=== PATIENT | male | born 1980 | race Caucasian/White ===

== ENCOUNTER 2016-10-29 20:11 | Emergency (ER) | payer BC, OTHER ==
[~2016-10-29] VITALS: Ht 180.3 cm; Wt 105.0 kg
[~2016-10-29 20:11] MED LIST: HYDR-3535 PO; METH750T2 PO; MOBI7.5T PO; NAPR500 PO; PRIN10TA PO
[2016-10-29 20:13] VITALS: BP 174/98; PULSE 73; RESP 18; TEMP 97.8; O2SAT 98
[2016-10-29] MEDS ORDERED: MOBI7.5T PO (20:46)
[2016-10-29] MEDS ORDERED: LISI10TA3 PO (20:46)
[2016-10-29] MEDS ORDERED: PERI0.126 SWISH-SPIT (20:59)
[2016-10-29] MEDS ORDERED: IBUP800T23 PO (20:59)
[2016-10-29] MEDS ORDERED: CLIN1CAP5 PO (20:59)
--- NOTE | 2016-10-29 20:59 | PD ---
HPI Chief Complaint: Oral / Dental Pain or Problem Time Seen by Provider: 20:51 Travel History International Travel<30 days: No Contact w/Intl Traveler<30days: No Traveled to known affect area: No History of Present Illness HPI Patient is a 35-year-old male presenting to the emergency department for evaluation of left lower third tooth pain. Patient states he's had chronic issues with that tooth however 2 days ago the tooth chipped off further. He reports the pain as a 6 out of 10 and believes he is developing an abscess. He reports that his gum is swollen around the tooth. He denies any fever, chills, headache, neck pain, dysphagia. PFSH Past Medical History Cardiac Catheterization: Yes (THINKS) Diminished Hearing: No GERD: Yes Hypertension: Yes Tetanus Vaccination: Unknown Influenza Vaccination: No Past Surgical History Other Surgery: Yes Social History Alcohol Use: No Tobacco Use: Yes Substance Use: No Allergies-Medications (Allergen,Severity, Reaction): Coded Allergies: No Known Allergies (Verified , 03/18/15) Reported Meds & Prescriptions Reported Meds & Active Scripts Active Reported Lisinopril 10 Mg Tab 10 Mg PO DAILY Mobic (Meloxicam) 7.5 Mg Tab Unknown Dose PO DAILY Review of Systems Except as stated in HPI: all other systems reviewed are Neg HENT: Positive: Dental Difficulties Physical Exam Narrative GENERAL: Well-nourished, well-developed patient. SKIN: Focused skin assessment warm/dry. HEAD: Normocephalic. MOUTH: Mucous membranes moist, no lesions, tongue appears normal. Lateral aspect of left lower gums adjacent to the third molar is mildly edematous and erythematous left lower third molar is broken off at the gumline. EYES: No scleral icterus. No injection or drainage. NECK: Supple, trachea midline. No JVD or lymphadenopathy. CARDIOVASCULAR: Regular rate and rhythm without murmurs, gallops, or rubs. RESPIRATORY: Breath sounds equal bilaterally. No accessory muscle use. GASTROINTESTINAL: Abdomen soft, non-tender, nondistended. MUSCULOSKELETAL: No cyanosis, or edema. BACK: Nontender without obvious deformity. No CVA tenderness. Data Data Last Documented VS Vital Signs Date Time Temp Pulse Resp B/P Pulse Ox O2 Delivery O2 Flow Rate FiO2 10/29/16 20:13 97.8 73 18 174/98 98 Room Air MDM Medical Decision Making Medical Screen Exam Complete: Yes Emergency Medical Condition: Yes Interpretation(s) Vital Signs Date Time Temp Pulse Resp B/P Pulse Ox O2 Delivery O2 Flow Rate FiO2 10/29/16 20:13 97.8 73 18 174/98 98 Room Air Differential Diagnosis Dental caries versus abscess versus dentalgia versus other Narrative Course Patient is a 35-year-old male presenting with acute on chronic dental pain in the left third molar. Patient's multiple dental caries throughout his mouth. There is a small area of edema to gumlines adjacent to the left lower third molar. Patient will be placed on antibiotics, he was given the list of local dental clinics. He was encouraged to follow-up with a dentist for further evaluation and treatment. He was encouraged to take ibuprofen as needed and as directed for pain. He was advised to return to emergency department for any new or worsening symptoms. Patient verbalized understanding of these instructions. Patient is stable for discharge. Diagnosis Primary Impression: Dental caries Additional Impression: Dental abscess Referrals: Dentist 3 days Patient Instructions: Dental Abscess (GEN), General Instructions Additional Instructions: Follow up with a dentist for further evaluation and management Complete full course of antibiotics as prescribed Take ibuprofen as needed as directed for pain Return to emergency department for any new or worsening symptoms Med/Other Pt SpecificInfo: Prescription(s) given Scripts Ibuprofen 800 Mg [id number] Mg PO Q6HR PRN (PAIN) #40 TAB Ref 0 Prov:Haley Carrero 10/29/16 Chlorhexidine Gluconate (Mouth) Liq (Peridex Liq)0.12% Soln15 Ml SWISH-SPIT BID 10 Days Ref 0 Prov:Haley Carrero 10/29/16 Clindamycin 150 Mg [id number] Mg PO Q8HR 10 Days Ref 0 Prov:Haley Carrero 10/29/16 Disposition: 01 DISCHARGE HOME Condition: Stable Haley Carrero Oct 29, 2016 20:59
== END 2016-10-29 21:20 | disposition home or self-care (01) ==
LOC: NEPK 20:11
DX: K02.9 Dental caries, unspecified (principal); K04.7 Periapical abscess without sinus; I10 Essential (primary) hypertension; Z72.0 Tobacco use
CPT/HCPCS: 99283

== ENCOUNTER 2017-05-29 03:32 | Emergency (ER) | payer OTHER ==
[~2017-05-29] VITALS: Ht 177.8 cm; Wt 110.0 kg
[~2017-05-29 03:32] MED LIST changes: +CLIN150C14 PO; -HYDR-3535 PO; +IBUP1TAB7 PO; +LISI10TA3 PO; -METH750T2 PO; -NAPR500 PO; +PERI0.126 SWISH-SPIT; -PRIN10TA PO
[2017-05-29 03:33] VITALS: BP 167/92; PULSE 82; RESP 16; TEMP 98.1; O2SAT 97
[2017-05-29] MEDS ORDERED: HYDR-3583 PO (03:38)
[2017-05-29] MEDS ORDERED: LISI10TA3 PO (03:38)
[2017-05-29] MEDS ORDERED: CYCL10TA PO (03:38)
[2017-05-29] MEDS ORDERED: ORPHENADRINE INJ 60 MG/2 ML AMP IV ONE (05:00)
[2017-05-29] MEDS ORDERED: SODIUM CHLOR 0.9% 1000 ML INJ 1,000 ML IV ONE (05:00)
[2017-05-29] MEDS ORDERED: KETOROLAC TROMETHAMINE 30 MG/ML (IVP) VIAL IV PUSH ONE (05:00)
[2017-05-29 05:19] LABS: AUTOMATED NEUTROPHIL # 6.4 TH/MM3 (1.8-7.7); BASOPHIL # 0.1 TH/MM3 (0-0.2); BASOPHIL % 0.8 % (0.0-2.0); EOSINOPHIL # 0.2 TH/MM3 (0-0.4); EOSINOPHIL % 2.3 % (0.0-4.0); HEMATOCRIT 43.6 % (39.0-51.0); HEMOGLOBIN 15.3 GM/DL (13.0-17.0); LYMPHOCYTE # 2.8 TH/MM3 (1.0-4.8); MEAN CELL VOLUME 88.4 FL (80.0-100.0); MEAN CORPUSCULAR HGB CONC 35.1 % (32.0-36.0); MEAN PLATELET VOLUME 9.1 FL (7.0-11.0); MONO % 8.7 % (0.0-8.0); MONOCYTE # 0.9 TH/MM3 (0-0.9); NEUT % 61.2 % (16.0-70.0); PLATELET COUNT 216 TH/MM3 (150-450); RED BLOOD COUNT 4.94 MIL/MM3 (4.50-5.90); RED CELL DISTRIBUTION WIDTH 12.9 % (11.6-17.2); WHITE BLOOD COUNT 10.5 TH/MM3 (4.0-11.0)
[2017-05-29 05:25] LABS: PROTHROMBIN TIME - PATIENT 9.8 SEC (9.8-11.6)
[2017-05-29 05:43] LABS: BICARBONATE 22.6 MEQ/L (21.0-32.0); C-REACTIVE PROTEIN 1.63 MG/DL (0.00-0.30); CALCIUM 8.8 MG/DL (8.5-10.1); CREATININE 0.9 MG/DL (0.60-1.30)
[2017-05-29] MEDS ORDERED: IOHEXOL 350 MG/ML 10 ML VIAL (for RAD DIAG) IVCONTRAST ONE (05:47)
--- NOTE | 2017-05-29 06:24 | RADRPT ---
EXAM DATE/TIME: 05/29/2017 05:37 [facility] COMPARISON: No previous studies available for comparison. INDICATIONS : Neck pain. IV CONTRAST: 80 cc Omnipaque 350 (iohexol) IV RADIATION DOSE: 16.05 CTDIvol (mGy) MEDICAL HISTORY : Hypertension. SURGICAL HISTORY : None. ENCOUNTER: Initial ACUITY: 1 day PAIN SCALE: 5/10 LOCATION: Bilateral neck TECHNIQUE: Volumetric scanning of the neck was performed. Using automated exposure control and adjustment of th e mA and/or kV according to patient size, radiation dose was kept as low as reasonably achievable to obtain optimal diagnostic quality images. DICOM format image data is available electronically for r eview and comparison. FINDINGS: NASOPHARYNX: The nasopharyngeal airway has a normal configuration. No mucosal thickening or mass is seen. OROPHARYNX: The intrinsic muscles of the tongue are symmetric. The tonsillar pillars are intact. The prevertebr al soft tissues are not thickened. The tonsils are prominent bilaterally without deeply infiltrating lesion. LARYNX: The supraglottic, glottic, and infraglottic structures are intact. PARAPHARYNGEAL: The parapharyngeal space is intact. SALIVARY GLANDS: The parotid and submandibular glands are intact. LYMPH NODES: No enlarged or necrotic-appearing nodes. THYROID: Homogeneous enhancement without evidence of nodule. BONES: Unremarkable. CONCLUSION: 1. Prominent tonsils otherwise unremarkable examination 2. Mildly enlarged group 2 lymph nodes bilaterally likely reactive. Gabe Young MD on May 29, 2017 at 6:19 Board Certified Radiologist. This report was verified electronically.
--- NOTE | 2017-05-29 06:27 | PD ---
HPI Chief Complaint: Back/ Neck Pain or Injury Time Seen by Provider: 03:59 Travel History International Travel<30 days: No Contact w/Intl Traveler<30days: No Traveled to known affect area: No History of Present Illness HPI 36-year-old white male presents emergency department with complaints of neck pain. He states that he had woken approximate 4:30 in the morning yesterday with pain. He states that the pain was mild and he felt some stiff in his neck. Throughout the day the pain has progressively worsened. He states that he has had a sore throat with this and has to clench his teeth because of the pain. Patient states the pain now has become moderate to severe. He states that he is unable to rotate his head to the left or the right. He can flex it forward some degree an extended but it is also limited. Patient denies any trauma. He has had a history of herniated disc in his neck but they have not been bothering her lately. Patient does make note that he has had a dental infection and he has been on clindamycin. He denies to glossal edema. No difficulty swallowing. He denies any focal numbness, tingling or weakness. PFSH Past Medical History Narrative Medical Hypertension, cardiac catheterization, cervical disc disease, lumbar disc disease, GERD Cardiac Catheterization: Yes (THINKS) Diminished Hearing: No Gastrointestinal Disorders: Yes GERD: Yes Hypertension: Yes Tetanus Vaccination: < 5 Years Past Surgical History Surgical History: No Previous Surgery Other Surgery: Yes Social History Alcohol Use: Yes Tobacco Use: Yes Substance Use: No Allergies-Medications (Allergen,Severity, Reaction): Coded Allergies: No Known Allergies (Verified Adverse Reaction, Unknown, 05/29/17) Reported Meds & Prescriptions Reported Meds & Active Scripts Active Reported Lisinopril 10 Mg Tab 10 Mg PO DAILY Flexeril (Cyclobenzaprine HCl) 10 Mg Tab 10 Mg PO TID Hydrocodone-Acetaminophen 10-325 mg Tab 1 Tab PO Q4H PRN Review of Systems General / Constitutional: No: Fever, Chills Eyes: No: Visual changes HENT: Positive: Sore Throat (mild), Neck Stiffness, Neck Pain, Dental Difficulties, No: Headaches Cardiovascular: No: Chest Pain or Discomfort Respiratory: No: Shortness of Breath Gastrointestinal: No: Abdominal Pain Genitourinary: No: Dysuria Musculoskeletal: No: Pain Skin: No Rash Neurologic: No: Weakness, Paresthesia Psychiatric: No: Depression Endocrine: No: Polydipsia Hematologic/Lymphatic: No: Easy Bruising Physical Exam Narrative GENERAL: Well-developed, well-nourished in no apparent distress. Nontoxic appearing. HEAD: Normocephalic, atraumatic. EYES: Pupils equal round and reactive. Extraocular motions intact. No scleral icterus. No injection or drainage. ENT: Nose clear. Throat without erythema, tonsillar hypertrophy or exudate. Uvula midline. Airway patent. NECK: Trachea midline. No central bony tenderness. Patient has paraspinal tenderness. Patient has mild spasm. Patient has significant decreased ability to flex his head forward or extend it. He has significant decreased ability to rotate his head. He complains of significant pain with movement. There is no erythema or warmth. CARDIOVASCULAR: Regular rate and rhythm without murmurs, gallops, or rubs. RESPIRATORY: Clear to auscultation. Breath sounds equal bilaterally. No wheezes , rales, or rhonchi. GASTROINTESTINAL: Abdomen soft, non-tender, nondistended. No hepato-splenomegaly , or palpable masses. No guarding. EXTREMITIES: No clubbing, cyanosis, or edema. No joint tenderness. BACK: Nontender without deformity. No flank tenderness. NEUROLOGICAL: Awake, alert and oriented x 3 .Cranial nerves grossly intact. Motor and sensory grossly within normal limits. Normal speech. Data Data Last Documented VS Vital Signs Date Time Temp Pulse Resp B/P (MAP) Pulse Ox O2 Delivery O2 Flow Rate FiO2 05/29/17 03:33 98.1 82 16 167/92 (117) 97 Room Air Orders Orders Complete Blood Count With Diff (05/29/17 04:47) Basic Metabolic Panel (Bmp) (05/29/17 04:47) Prothrombin Time / Inr (Pt) (05/29/17 04:47) Act Partial Throm Time (Ptt) (05/29/17 04:47) C-Reactive Protein (Crp) (05/29/17 04:47) Westergren Sedimentation Rate (05/29/17 04:47) Iv Access Insert/Monitor (05/29/17 04:47) Ketorolac Inj (Toradol Inj) (05/29/17 05:00) Orphenadrine Inj (Norflex Inj) (05/29/17 05:00) Ct Soft Tiss Neck W Iv Cont (05/29/17 04:47) Sodium Chlor 0.9% 1000 Ml Inj (Ns 1000 M (05/29/17 05:00) Iohexol 350 Inj (Omnipaque 350 Inj) (05/29/17 05:47) Mri C Spine W/O Contrast (05/29/17 06:40) Mri T Spine W/O Contrast (05/29/17 06:40) Labs Laboratory Tests Test 05/29/17 05:00 White Blood Count 10.5 TH/MM3 Red Blood Count 4.94 MIL/MM3 Hemoglobin 15.3 GM/DL Hematocrit 43.6 % Mean Corpuscular Volume 88.4 FL Mean Corpuscular Hemoglobin 31.0 PG Mean Corpuscular Hemoglobin Concent 35.1 % Red Cell Distribution Width 12.9 % Platelet Count 216 TH/MM3 Mean Platelet Volume 9.1 FL Neutrophils (%) (Auto) 61.2 % Lymphocytes (%) (Auto) 27.0 % Monocytes (%) (Auto) 8.7 % Eosinophils (%) (Auto) 2.3 % Basophils (%) (Auto) 0.8 % Neutrophils # (Auto) 6.4 TH/MM3 Lymphocytes # (Auto) 2.8 TH/MM3 Monocytes # (Auto) 0.9 TH/MM3 Eosinophils # (Auto) 0.2 TH/MM3 Basophils # (Auto) 0.1 TH/MM3 CBC Comment DIFF FINAL Differential Comment Erythrocyte Sedimentation Rate GREATER THAN 140 mm/hr Prothrombin Time 9.8 SEC Prothromb Time International Ratio 1.0 RATIO Activated Partial Thromboplast Time 27.6 SEC Blood Urea Nitrogen 14 MG/DL Creatinine 0.90 MG/DL Random Glucose 107 MG/DL Calcium Level 8.8 MG/DL Sodium Level 139 MEQ/L Potassium Level 4.4 MEQ/L Chloride Level 108 MEQ/L Carbon Dioxide Level 22.6 MEQ/L Anion Gap 8 MEQ/L Estimat Glomerular Filtration Rate 94 ML/MIN C-Reactive Protein 1.63 MG/DL MDM Medical Decision Making Medical Screen Exam Complete: Yes Emergency Medical Condition: Yes Medical Record Reviewed: Yes Interpretation(s) Laboratory Tests Test 05/29/17 05:00 White Blood Count 10.5 TH/MM3 Red Blood Count 4.94 MIL/MM3 Hemoglobin 15.3 GM/DL Hematocrit 43.6 % Mean Corpuscular Volume 88.4 FL Mean Corpuscular Hemoglobin 31.0 PG Mean Corpuscular Hemoglobin Concent 35.1 % Red Cell Distribution Width 12.9 % Platelet Count 216 TH/MM3 Mean Platelet Volume 9.1 FL Neutrophils (%) (Auto) 61.2 % Lymphocytes (%) (Auto) 27.0 % Monocytes (%) (Auto) 8.7 % Eosinophils (%) (Auto) 2.3 % Basophils (%) (Auto) 0.8 % Neutrophils # (Auto) 6.4 TH/MM3 Lymphocytes # (Auto) 2.8 TH/MM3 Monocytes # (Auto) 0.9 TH/MM3 Eosinophils # (Auto) 0.2 TH/MM3 Basophils # (Auto) 0.1 TH/MM3 CBC Comment DIFF FINAL Differential Comment Erythrocyte Sedimentation Rate GREATER THAN 140 mm/hr Prothrombin Time 9.8 SEC Prothromb Time International Ratio 1.0 RATIO Activated Partial Thromboplast Time 27.6 SEC Blood Urea Nitrogen 14 MG/DL Creatinine 0.90 MG/DL Random Glucose 107 MG/DL Calcium Level 8.8 MG/DL Sodium Level 139 MEQ/L Potassium Level 4.4 MEQ/L Chloride Level 108 MEQ/L Carbon Dioxide Level 22.6 MEQ/L Anion Gap 8 MEQ/L Estimat Glomerular Filtration Rate 94 ML/MIN C-Reactive Protein 1.63 MG/DL Last [address] 05/29/17 0447 Signed Impressions: Service Date/Time: May 05:37 - CONCLUSION: 1. Prominent tonsils otherwise unremarkable examination 2. Mildly enlarged group 2 lymph nodes bilaterally likely reactive. Gabe Young MD Differential Diagnosis MDM: High Differential diagnoses: Sprain, strain, muscle spasm, retropharyngeal abscess, epidural abscess, meningitis Narrative Course IV access is obtained. Routine laboratory tests sent for evaluation including CBC, chemistry, sedimentation rate, CRP. CT soft tissue neck to rule out abscess. The patient's laboratory tests show an elevated sedimentation rate of greater than 120 long with an elevated CRP of 1.67. Patient's white count is unremarkable. CT scan does not reveal any obvious abscess. I've had Dr. Ward evaluate the patient will also agrees that the patient's clinical findings and his laboratory tests are concerning. He has requested an MRI of the patient's neck as well as a lumbar puncture if the MRI is negative to rule out meningitis The patient's care be transferred to the oncoming MEGHANA Bray. Ahmet Fink May 29, 2017 06:27
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
[2017-05-29] MEDS ORDERED: GADODIAMIDE PF 287 MG/ML 20 ML VIAL (for RAD MRI) IVCONTRAST ONE (08:00)
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
[2017-05-29] MEDS ORDERED: IBUP-232 PO (09:18)
[2017-05-29] MEDS ORDERED: BACL10TA PO (09:18)
== END 2017-05-29 09:45 | disposition home or self-care (01) ==
LOC: NEPD 03:32
DX: M50.222 Other cervical disc displacement at C5-C6 level (principal); M54.2 Cervicalgia; R70.0 Elevated erythrocyte sedimentation rate; R07.0 Pain in throat; I10 Essential (primary) hypertension; Z72.0 Tobacco use; Z86.79 Personal history of other diseases of the circulatory system; Z87.19 Personal history of other diseases of the digestive system; K08.89 Other specified disorders of teeth and supporting structures
CPT/HCPCS: 70491; 72156; 72157; 80048; 85025; 85610; 85652; 85730; 86140; 96374; 96375; 99285; A9579; J1885; J2360; J7030; Q9967